=== PATIENT | male | born 1965 | race Caucasian/White ===

== ENCOUNTER 2019-01-16 13:20 | Emergency (ER) | payer BC ==
[2019-01-16] MEDS ORDERED: 0.9 % SODIUM CHLORIDE 1000ML 1,000 ML IV ONE (13:35)
[2019-01-16] MEDS ORDERED: ONDANSETRON HCL IV 4 MG/2 ML VIAL IVP ONE ×2 (13:35→14:58)
[2019-01-16] MEDS ORDERED: KETOROLAC 30 MG/ML VIAL IVP ONE (13:35)
--- NOTE | 2019-01-16 13:38 | Emergency Department Record ---
History of Present Illness - General Chief Complaint: Abdominal Pain Stated Complaint: SHARP RT SIDE PAIN Source: Patient, Family Mode of Arrival: Ambulatory Limitations: No limitations - History of Present Illness Initial Comments: 53 yo male presents with sudden onset right flank pain about 1.5 to 2 hours ago. The pain is sharp. It is associated with nausea and vomiting. No dysuria , no hematuria, no diarrhea. No past surgical history of the abdomen. No history of similar symptoms. He is normally healthy no on any medications. MD Complaint: Abdominal pain, Flank pain (right sided) -: Hour(s) (2) Location: R Flank Radiation: R flank Migration to: R Flank Severity: Severe Quality: Sharp Consistency: Constant Improves With: Nothing Worsens With: Vomiting Context: Other Associated Symptoms: Vomiting - Related Data Home Medications Medication Instructions Recorded Confirmed Last Taken Multivitamin [Multi-Vitamin Daily] 1 tab PO DAILY 01/16/19 01/16/19 01/16/19 Previous Rx's Medication Instructions Recorded Hydrocodone/Acetaminophen [Chilo 1 tab PO Q6H PRN #8 tab 01/16/19 5mg/325mg] Ondansetron [Zofran Odt] 4 mg PO Q8H #15 tab.rapdis 01/16/19 Allergies Allergy/AdvReac Type Severity Reaction Status Date / Time Penicillins Allergy PT UNSURE Verified 01/16/19 13:34 OF REACTION Review of Systems Constitutional: Denies: Chills, Fever, Malaise, Weakness Eyes: Denies: Eye discharge ENT: Denies: Congestion, Throat pain Respiratory: Denies: Cough, Dyspnea Cardiovascular: Denies: Chest pain, Palpitations, Syncope Endocrine: Denies: Fatigue Gastrointestinal: Reports: Abdominal pain, Nausea, Vomiting. Denies: Diarrhea Genitourinary: Denies: Dysuria, Frequency, Hematuria Musculoskeletal: Reports: Back pain. Denies: Arthralgia, Joint swelling, Myalgia Skin: Denies: Bruising, Change in color, Rash Neurological: Denies: Headache Psychiatric: Denies: Anxiety Hematological/Lymphatic: Denies: Easy bleeding, Easy bruising Physical Exam - General General Appearance: Alert, Oriented x3, Cooperative, No acute distress Limitations: No limitations - Head Head exam: Atraumatic, Normal inspection - Eye Eye exam: Normal appearance - ENT ENT exam: Normal exam Ear exam: Normal external inspection Nasal Exam: Normal inspection Mouth exam: Normal external inspection - Neck Neck exam: Normal inspection - Respiratory Respiratory exam: Normal lung sounds bilaterally. negative: Respiratory distress - Cardiovascular Cardiovascular Exam: Regular rate, Normal rhythm, Normal heart sounds - GI/Abdominal GI/Abdominal exam: Soft. negative: Distended, Guarding, Rebound, Rigid, Tenderness - Rectal Rectal exam: Deferred - exam: Deferred - Extremities Extremities exam: Normal inspection. negative: Tenderness - Back Back exam: Reports: CVA tenderness (R). Denies: CVA tenderness (L), Muscle spasm, Paraspinal tenderness, Rash noted, Tenderness, Vertebral tenderness - Neurological Neurological exam: Alert, Oriented X3 - Psychiatric Psychiatric exam: Normal affect, Normal mood. negative: Agitated, Anxious - Skin Skin exam: Dry, Intact, Normal color, Warm Course - Reevaluation(s) Reevaluation #1: The labs were reviewed WBC is 12 The renal function is normal RBC's noted in the urine. Nitrite negative and LE negative The CT demonstrates a 3 mm distal passing stone His pain and nausea are improved 01/16/19 14:33 01/16/19 15:32 Pain and nausea under control at the moment. We have discussed the CT results With a distal 3mm stone it is anticipated that it will pass We discussed reasons to return as well as close follow up with his PCP 01/16/19 19:26 Medical Decision Making - Lab Data Result diagrams: 01/16/19 13:45 01/16/19 13:45 Disposition Disposition: Discharge Clinical Impression: Renal colic on right side Disposition: Home, Self-Care Condition: (1) Good Instructions: Renal Colic (ED) Additional Instructions: Call your doctor for the next available follow up appointment Return to the ER for a recheck if worse, any new concerns or questions, fever, uncontrolled pain or any new concerns Take the prescriptions provided as directed for pain and nausea Review this ER visit and the tests performed with your family doctor Prescriptions: Hydrocodone/Acetaminophen [Chilo 5mg/325mg] 1 tab PO Q6H PRN #8 tab PRN Reason: Pain - General Ondansetron [Zofran Odt] 4 mg PO Q8H #15 tab.rapdis Referrals: CURLY ARORA M.D. [MEDICAL DOCTOR] - [facility] [Provider Group] Forms: Patient Portal Access Time of Disposition: 16:30 Quality - Quality Measures Quality Measures: N/A - Blood Pressure Screening Does Patient Have Any of the Following: No Blood Pressure Classification: Pre-Hypertensive BP Reading Systolic Measurement: 124 Diastolic Measurement: 71 Screening for High Blood Pressure: < Pre-Hypertensive BP, F/U Documented > [ [id number]] Pre-Hypertensive Follow-up Interventions: Referral to alternative/primary care provider.
[2019-01-16 14:00] LABS: BASO % 0.2 % (0-6); EOS % 0.6 % (0-6); GRAN % 71.7 % (47-80); HEMATOCRIT 46.6 % (42.0-52.0); HEMOGLOBIN 15.5 gm/dl (14.0-18.0); LYMPH % 18.1 % (16-45); MEAN CELL VOLUME 87.9 fl (81-97); MEAN CORPUSCULAR HEMOGLOBIN 29.2 pg (27-33); MEAN CORPUSCULAR HGB CONC 33.3 g/dl (32-36); MEAN PLATELET VOLUME 9.6 fl (7.4-10.4); MONO % 9.4 % (0-9); PLATELET COUNT 280 K/uL (130-400); RED CELL DISTRIBUTION WIDTH 13.3 % (11.5-14.5); WHITE BLOOD COUNT W/O DIFF 12.7 K/uL (4.2-12.2)
[2019-01-16 14:06] LABS: BLOOD UREA NITROGEN 20 mg/dL (6-20); CREATININE 0.9 mg/dL (0.7-1.2); EST GLOMERULAR FILTRATION RATE > 60 mL/min
[2019-01-16 14:07] LABS: TOTAL PROTEIN 7.7 g/dL (6.6-8.7)
[2019-01-16 14:09] LABS: GLUCOSE,RANDOM 176 mg/dL (74-109)
[2019-01-16 14:10] LABS: URINE BILIRUBIN NEGATIVE (NEGATIVE); URINE BLOOD LARGE (NEGATIVE); URINE COLOR YELLOW; URINE GLUCOSE (UA) NEGATIVE (NEGATIVE); URINE KETONE 15 mg/dL (NEGATIVE); URINE LEUKOCYTE ESTERASE NEGATIVE (NEGATIVE); URINE NITRITE NEGATIVE (NEGATIVE); URINE PROTEIN TRACE (NEGATIVE); URINE UROBILINOGEN 0.2 E.U./dL (0.20 - 1.00)
[2019-01-16 14:11] LABS: ALT/SGPT 33 U/L (<41)
[2019-01-16 14:12] LABS: ALB/GLOB RATIO 1.8 (1.1-1.8); ALBUMIN 4.9 g/dL (4.0-5.0); ALKALINE PHOSPHATASE 66 U/L (40-129); AST/SGOT 21 U/L (10.0-50.0)
[2019-01-16 14:18] LABS: URINE APPEARANCE CLOUDY
[2019-01-16 14:19] LABS: URINE BACTERIA 2+; URINE EPITHELIAL CELLS NONE SEEN (FEW); URINE WBC 0 - 2 (0-2/hpf)
[2019-01-16] MEDS ORDERED: MORPHINE SULFATE 10 MG/ML VIAL IVP ONE (14:49)
[2019-01-16] MEDS ORDERED: HYDROCODONE/APAP 5/325MG TABLET PO ONE (15:49)
[2019-01-16] MEDS ORDERED: ONDANSETRON 4 MG ODT TABLET SL ONE (15:49)
--- NOTE | 2019-01-19 12:16 | CT SCAN REPORT ---
EXAM: CT OF THE ABDOMEN AND PELVIS WITHOUT CONTRAST HISTORY: RIGHT FLANK PAIN. TECHNIQUE: Sequential axial images were obtained from the diaphragms through the ischiorectal fossa without intravenous or oral contrast administration. FINDINGS: There is a 3 mm passing stone at the right ureteral vesicular junction. This produces mild right hydronephrosis. There is a partially calcified cystic lesion in the left kidney. Nonopacified liver, gallbladder, pancreas, and spleen appear normal. The adrenal glands appear normal. The small and large bowel appears normal. The urinary bladder appears normal. The osseous structures are normal. IMPRESSION: 1. 3 MM PASSING STONE AT THE RIGHT URETERAL VESICULAR JUNCTION. THIS PRODUCES MILD RIGHT HYDRONEPHROSIS. 2. PARTIALLY CALCIFIED CYSTIC LESION IN THE LEFT KIDNEY. JOB NUMBER: [id number] MTDD
== END 2019-01-16 16:18 | disposition home or self-care (01) ==
LOC: ER 13:20
DX: N20.0 Calculus of kidney (principal); R11.2 Nausea with vomiting, unspecified
CPT/HCPCS: 99284 ×2; 96376; 96374; 96375; 96361; 85025; 80053; 81001; 74176; J1885; J2405; J2270; J7030